=== PATIENT | female | born 1930 | race Caucasian/White ===

== ENCOUNTER → 2016-12-01 | Outpatient (CLI) | payer MEDICARE, BC ==
[~2016-12-01] VITALS: Ht 157.5 cm; Wt 65.9 kg
[~2016-12-01] MED LIST: ASPIRIN 81M81 MG/TA2 PO; PREDNISONE 5MG5 MG PO; PRILOSEC 20MG20 MG PO; TAMBOCOR 1100 MG/TAB PO; ULTRAM 50MG TAB50 MG PO
[2016-12-01 13:01] VITALS: BP 150/83; PULSE 62
[2016-12-01 14:08] VITALS: BP 159/78; PULSE 63
== END ==
LOC: COL.RAD 09:30
DX: M51.16 Intervertebral disc disorders with radiculopathy, lumbar region (principal); M79.604 Pain in right leg
CPT/HCPCS: J3301